=== PATIENT | female | born 1980 | race Hispanic/Latino ===

== ENCOUNTER 2021-12-08 17:58 | Emergency (ER) | payer SELFPAY ==
[2021-12-08 18:07] VITALS: BP 140/88; PULSE 133; RESP 18; TEMP 39.2; O2SAT 100
--- NOTE | 2021-12-08 18:22 | ED.URI ---
HPI - URI/Sore Throat General Chief Complaint: Upper Respiratory Infection Stated Complaint: Ear Pain,Sore Throat Time Seen by Provider: 12/08/21 18:22 Source: patient and RN notes reviewed Mode of arrival: ambulatory Limitations: no limitations History of Present Illness HPI Narrative: 41-year-old female presented for complaint of fever, sore throat, and post nasal drainage for about 2 days, and right ear pain onset 5 days ago. Denies associated cough, shortness of breath, nausea, vomiting or diarrhea. Taking aspirin for symptoms. Endorses son is also sick. She is not vaccinated for COVID or flu. MD elicited complaint: cough Related Data Home Medications Medication Instructions Recorded Confirmed No Home Medications 12/08/21 12/08/21 Allergies Allergy/AdvReac Type Severity Reaction Status Date / Time No Known Allergies Allergy Verified 12/08/21 18:04 Review of Systems Review of Systems: CONSTITUTIONAL: denies malaise, EYES: Denies visual changes, redness, or discharge ENT: Reports rhinorrhea otalgia, sore throat CARDIOVASCULAR: Denies chest pain, palpitations, edema RESPIRATORY: Denies dyspnea GASTROINTESTINAL: Denies abdominal pain, nausea, vomiting, diarrhea SKIN: Denies rash or itching MUSCULOSKELETAL: Denies myalgia NEUROLOGIC: Denies headache Exam Narrative: GENERAL: ill-appearing nontoxic HEAD: Normocephalic EYES: conjunctivae clear ENT: Mucous membranes moist. TM pearly garcia with normal light reflex bilaterally; no tragal tenderness. Oropharynx erythematous without lesions or exudate, no drooling, no hoarseness, no trismus, uvula midline. No tripod positioning, muffled voice, soft palate or pharyngeal wall bulging NECK: Supple. No lymphadenopathy CHEST: Clear to auscultation, breath sounds equal. No respiratory distress, speaks in full sentences. HEART: Regular rate and rhythm. No murmur heard. SKIN: Warm, dry, no rash. NEURO: Alert and oriented x3. PSYCH: Normal mood and affect Course Course Emergency Course: Patient is aware of diagnosis, understands and agrees to treatment plan. Anticipatory guidance given. Patient agrees to follow-up as directed and is aware of reasons to seek care at the emergency department. Portions of this record may have been created with voice recognition software Level of Care: Express Care Visit Vital Signs Vital signs: Vital Signs Temperature 102.6 F H 12/08/21 18:07 Pulse Rate 133 H 12/08/21 18:07 Respiratory Rate 18 12/08/21 18:07 Blood Pressure 140/88 12/08/21 18:07 Pulse Oximetry 100 12/08/21 18:07 Oxygen Delivery Room Air 12/08/21 18:07 Temperature 102.6 F H 12/08/21 18:07 Pulse Rate 133 H 12/08/21 18:07 Respiratory Rate 18 12/08/21 18:07 Blood Pressure 140/88 12/08/21 18:07 Pulse Oximetry 100 12/08/21 18:07 Oxygen Delivery Room Air 12/08/21 18:07 reviewed MDM - URI/Sore Throat MDM Narrative Medical decision making narrative: flu, covid, strep negative. Advised on supportive treatment. She is stable and appropriate for outpatient treatment follow-up. Differential Diagnosis Differential diagnosis: Likely upper respiratory infection, sinusitis and viral infection Discharge Plan Discharge Clinical Impression: Viral infection Patient Disposition: Home, Self-Care Condition: Stable Instructions: Antibiotic Form, Pharyngitis (ED) Additional Instructions: Flu and COVID-negative, rapid strep swab was negative today You will be notified in a few days if the culture comes back positive for strep, and appropriate antibiotics will be called in at that time. if symptoms are due to a viral illness, it is not treated with antibiotics. Viral symptoms can be present for up to 10-14 days. Recommend Zyrtec for sinus congestion/drainage Tylenol 1000mg every 8 hours as needed for pain/fever alternate with ibuprofen 800 mg every 8 hours Soft foods, cool liquids, warm tea. Gargle with warm saltwater twice a
[2021-12-08 18:30] VITALS: TEMP 38.8
[2021-12-08] MEDS: ACETAMINOPHEN 500 MG TABLET 1000 MG PO (18:30)
== END 2021-12-08 18:47 | disposition home or self-care (01) ==
PROVIDERS: Emergency Provider Nurse Practitioner Family
DX: B34.9 Viral infection, unspecified (principal); Z20.822 Contact with and (suspected) exposure to COVID-19
CPT/HCPCS: 87081; 87426; 87804; 87880; 99213; A9270; C9803; G0463

== ENCOUNTER 2022-03-11 16:00 | Outpatient (CLI) | payer SELFPAY ==
--- NOTE | ~2022-03-11 | XR_ITS ---
EXAMINATION: XR chest 2V DATE: 03/11/2022 16:32 INDICATION: Cough TECHNIQUE: PA and lateral views of the chest were obtained. COMPARISON: Chest radiograph dated 03/21/2018 FINDINGS: The lungs remain clear with no focal airspace opacities, pulmonary edema, pleural effusion or pneumot horax. The cardiomediastinal silhouette is normal. Old anterior right ninth rib fracture. IMPRESSION: 1. No acute cardiopulmonary disease. Reviewed, dictated and finalized at location A.
== END 2022-03-11 16:01 | disposition home or self-care (01) ==
PROVIDERS: PCP Emergency Medicine; Visit Provider Emergency Medicine
DX: R05.9 Cough, unspecified (principal)
CPT/HCPCS: 71046

== ENCOUNTER 2024-02-24 08:44 | Outpatient (CLI) | payer OTHER, SELFPAY ==
--- NOTE | ~2024-02-24 | XR_ITS ---
Clinical Indication: Cough PA and lateral views of the chest: Comparison: 03/11/2022 Findings: The lungs are clear, without evidence of focal consolidation or pleural effusion. Cardiome diastinal silhouette is within normal limits. Bones and soft tissues are unremarkable. Impression: Normal chest. Reviewed, dictated and finalized at location . Impression: Normal chest.
[2024-02-24 09:46] LABS: Add Urine Microscopic? YES; Appearance Urine Clear (Clear); Bacteria Urine None Seen /hpf; Bilirubin Urine Negative (Negative); Blood Urine 2+ (Negative); Color Urine Yellow (Yellow); Glucose Urine UA Negative (Negative); Ketones Urine Negative (Negative); Leukocyte Esterase Ur Negative LEU/UL (Negative); Nitrate Urine Negative (Negative); Non Pathogenic Casts 0-2; Protein Urine Negative (Negative); Specific Grav Ur 1.005 (1.001-1.035); Squamous Epithelial Cell Urine None Seen /hpf (Few); Urobilinogen Urine 0.2 mg/dL (<2.0); WBC Urine 0-5 /hpf (0-3); pH Urine 5.5 (5.0-9.0)
[2024-02-24 09:50] LABS: Hemoglobin 15.5 g/dL (12.0-15.0); Mean Corpuscular Hemoglobin 30.5 pg (26-34); Mean Corpuscular Volume 92.5 fl (80-100); Mean Platelet Volume 10.3 fl (7.4-10.4); Platelet Count Result 225 k/mm3 (150-375); Red Blood Count 5.08 M/mm3 (4.2-5.4); Red Cell Distribution Width 12.4 % (11.5-14.5)
[2024-02-24 13:54] LABS: Free T4 Free Thyroxine 1.23 ng/mL (0.78-2.19)
[2024-02-24 14:03] LABS: Alanine Aminotransferase 15 U/L (6-35); Albumin Level 4.6 g/dL (3.5-5.1); Alkaline Phosphatase 61 U/L (38-126); Anion Gap 14 mmol/L (4-12); Aspartate Amino Transferase 30 U/L (14-36); Bilirubin,Total 0.7 mg/dL (0.2-1.3); Blood Urea Nitrogen 15 mg/dL (7-17); Calcium 9.4 mg/dL (8.4-10.2); Carbon Dioxide 21 mmol/L (22-30); Chloride 103 mmol/L (98-107); Cholesterol 177 mg/dL (0-200); Estimated Glomerular Filt Rate > 60; Glucose 96 mg/dL (65-110); HDL Direct 55 mg/dL; Potassium 4.1 mmol/L (3.4-5.0); Sodium 138 mmol/L (137-145); Triglycerides 89 mg/dL (<150)
[2024-02-24 14:14] LABS: LDL Cholesterol Direct 96 mg/dL
[2024-02-24 20:20] LABS: Hemoglobin A1C 5.7 % (<5.7)
== END 2024-02-24 08:45 | disposition home or self-care (01) ==
PROVIDERS: PCP Emergency Medicine; Visit Provider Emergency Medicine
DX: Z00.00 Encounter for general adult medical examination without abnormal findings (principal); J32.9 Chronic sinusitis, unspecified; R05.9 Cough, unspecified
CPT/HCPCS: 36415; 71046; 80053; 80061; 81001; 82306; 83036; 84439; 84443; 85027

== ENCOUNTER 2024-03-05 13:07 | Emergency (ER) | payer OTHER, SELFPAY ==
--- NOTE | ~2024-03-05 | CT_ITS ---
CT facial bones w con Ordering provider: Geraldo Brothers MD History: . Facial pain sinus pain . Comparison: None. Technique: Thin slice axial CT of the facial bones was performed without contrast. Coronal and sagit herrera reformatted images were also obtained. . Automated exposure control and iterative reconstruction technique were employed. The dose-length product was 310.82 mGy-cm. FINDINGS: PARANASAL SINUSES: Well aerated. BONES: No facial fracture including no nasal bone fracture. Mild left nasal septal deviation. ORBITS AND SUPERFICIAL SOFT TISSUES: The optic globes and orbits are normal. The superficial soft tis sues are normal. VISUALIZED MASTOIDS: Well aerated. LIMITED VISUALIZED BRAIN PARENCHYMA: Normal. IMPRESSION: No abnormality seen in the paranasal sinuses. Mild left nasal septal deviation. Reviewed, dictated and finalized at location A.
[2024-03-05 13:39] VITALS: BP 148/77; PULSE 73; RESP 14; TEMP 36.3; O2SAT 96
[2024-03-05 14:50] VITALS: RESP 20; O2SAT 98
[2024-03-05 16:03] LABS: Basophils Percent Auto 0.3 % (0.2-1.2); Eosinophils Absolute Auto 0.2 K/mm3 (0-0.3); Hematocrit 44.4 % (37.0-47.0); Hemoglobin 14.9 g/dL (12.0-15.0); Immature Granulocyte Absolute 0.01 K/mm3 (0.00-0.031); Immature Granulocyte Percent A 0.1 % (0-0.5); Lymphocytes Absolute Auto 1.35 K/mm3 (0.9-3.2); Lymphocytes Percent Auto 18.3 % (18.3-44.2); Mean Corpuscular HGB Conc 33.6 g/dl (32-36); Mean Corpuscular Hemoglobin 30.7 pg (26-34); Mean Corpuscular Volume 91.5 fl (80-100); Monocytes Absolute Auto 0.3 K/mm3 (0.1-0.6); Monocytes Percent Auto 3.7 % (2.6-8.5); Neutrophils Absolute Auto 5.6 K/mm3 (1.3-6.7); Neutrophils Percent Auto 75.6 % (45.5-73.1); Platelet Count Result 241 k/mm3 (150-375); Red Blood Count 4.85 M/mm3 (4.2-5.4); White Blood Count 7.4 K/mm3 (4.5-10.0)
[2024-03-05 16:10] LABS: Estimated CRCL calculation 75 ml/min; Estimated Glomerular Filt Rate > 60
[2024-03-05 16:16] LABS: Alanine Aminotransferase 14 U/L (6-35); Albumin Level 4.4 g/dL (3.5-5.1); Alkaline Phosphatase 60 U/L (38-126); Anion Gap 10 mmol/L (4-12); Aspartate Amino Transferase 29 U/L (14-36); Bilirubin,Total 0.4 mg/dL (0.2-1.3); Blood Urea Nitrogen 11 mg/dL (7-17); Calcium 9.1 mg/dL (8.4-10.2); Carbon Dioxide 25 mmol/L (22-30); Chloride 103 mmol/L (98-107); Estimated CRCL calculation 75 ml/min; Estimated Glomerular Filt Rate > 60; Glucose 97 mg/dL (65-110); Potassium 3.8 mmol/L (3.4-5.0); Sodium 138 mmol/L (137-145)
[2024-03-05 16:18] LABS: Lactic Acid Reflex 0.9 mmol/L (0.7-2.0)
--- NOTE | 2024-03-05 17:08 | ED.GENADULT ---
HPI - General Adult General Chief complaint: Unspecified Stated complaint: sinus infection wants CT scan Time Seen by Provider: 03/05/24 15:21 History of Present Illness HPI narrative: Patient 43-year-old female who presents emergency department with chief complaint of sinus pressure patient reports he has been seen by her primary care doctor started on amoxicillin flipped Augmentin patient reports still having pressure in her sinuses and reports that now has a stiffness and pain on the right side of her neck patient states that she is our primary care provider today who has referred her to Ear Nose Throat but told to come to the emergency department for a CT scan of her sinuses and she may still have an infection Related Data Allergies Allergy/AdvReac Type Severity Reaction Status Date / Time No Known Allergies Allergy Verified 03/05/24 14:54 Review of Systems Review of Systems: A 10 system review of systems was completed on the patient and is negative except for what is stated in the HPI. Nursing and ancillary documentation was reviewed. Exam Narrative: GENERAL: Well-appearing, well-nourished, and in no acute distress. HEAD: Normocephalic, atraumatic. EYES: PERRLA and EOMI. ENT: Nares clear, no rhinorrhea or epistaxis. Mucous membranes moist. NECK: Supple. CHEST: Clear to auscultation. No respiratory distress. HEART: Regular rate and rhythm. No murmur heard. Normal peripheral pulses. ABDOMEN: Soft, nontender, nondistended, normal active bowel sounds. EXTREMITIES: Normal range of motion. No edema. SKIN: Warm, dry, no rash. NEURO: No focal deficits. Alert and oriented x3. PSYCH: Normal mood and affect. Course Vital Signs Vital signs: Vital Signs Temperature 36.3 C L 03/05/24 13:39 Pulse Rate 73 03/05/24 13:39 Respiratory Rate 14 03/05/24 13:39 Blood Pressure 148/77 H 03/05/24 13:39 Pulse Oximetry 96 03/05/24 13:39 Oxygen Delivery Room Air 03/05/24 13:39 Temperature 36.3 C L 03/05/24 13:39 Pulse Rate 73 03/05/24 13:39 Respiratory Rate 20 03/05/24 14:50 Blood Pressure 148/77 H 03/05/24 13:39 Pulse Oximetry 98 03/05/24 14:50 Oxygen Delivery Room Air 03/05/24 13:39 Medical Decision Making [facility] Narrative Medical decision making narrative: Differential diagnosis includes sinusitis, mastoiditis, Laboratory studies were obtained on the patient showed a white count of 7.4 electrolytes are within normal limits CT scan showed PARANASAL SINUSES: Well aerated. BONES: No facial fracture including no nasal bone fracture. Mild left nasal septal deviation. ORBITS AND SUPERFICIAL SOFT TISSUES: The optic globes and orbits are normal. The superficial soft tissues are normal. VISUALIZED MASTOIDS: Well aerated. LIMITED VISUALIZED BRAIN PARENCHYMA: Normal. IMPRESSION: No abnormality seen in the paranasal sinuses. Mild left nasal septal deviation. Patient be started on a prednisone pulse and will be discharged to follow-up with her primary care provider and ear nose and throat Vital Signs Vital Signs: Vital Signs Temperature 36.3 C L 03/05/24 13:39 Pulse Rate 73 03/05/24 13:39 Respiratory Rate 14 03/05/24 13:39 Blood Pressure 148/77 H 03/05/24 13:39 Pulse Oximetry 96 03/05/24 13:39 Oxygen Delivery Room Air 03/05/24 13:39 Temperature 36.3 C L 03/05/24 13:39 Pulse Rate 73 03/05/24 13:39 Respiratory Rate 20 03/05/24 14:50 Blood Pressure 148/77 H 03/05/24 13:39 Pulse Oximetry 98 03/05/24 14:50 Oxygen Delivery Room Air 03/05/24 13:39 Lab Data 03/05/24 15:54 03/05/24 16:08 Labs: Lab Results 03/05/24 03/05/24 Range/Units 15:54 16:08 WBC 7.4 (4.5-10.0) K/mm3 RBC 4.85 (4.2-5.4) M/mm3 Hgb 14.9 (12.0-15.0) g/dL Hct 44.4 (37.0-47.0) % MCV 91.5 (80-100) fl MCH 30.7 (26-34) pg MCHC 33.6 (32-36) g/dl RDW 12.0 (11.5-14.5) % Plt Count 241
[2024-03-05 17:39] VITALS: BP 122/74; PULSE 80; RESP 17; O2SAT 100
== END 2024-03-05 17:41 | disposition home or self-care (01) ==
PROVIDERS: Emergency Provider Emergency Medicine; PCP Emergency Medicine
DX: R51.9 Headache, unspecified (principal)
CPT/HCPCS: 36415; 70487; 80053; 83605; 85025; 99284; Q9967

== ENCOUNTER 2024-03-27 07:41 | Outpatient (CLI) | payer OTHER, SELFPAY ==
[2024-03-27 08:20] LABS: Hematocrit 41.5 % (37.0-47.0); Hemoglobin 13.8 g/dL (12.0-15.0); Mean Corpuscular HGB Conc 33.3 g/dl (32-36); Mean Corpuscular Hemoglobin 30.8 pg (26-34); Mean Corpuscular Volume 92.6 fl (80-100); Mean Platelet Volume 10.4 fl (7.4-10.4); Platelet Count Result 200 k/mm3 (150-375); Red Blood Count 4.48 M/mm3 (4.2-5.4); Red Cell Distribution Width 12.4 % (11.5-14.5); White Blood Count 4.3 K/mm3 (4.5-10.0)
== END 2024-03-27 07:42 | disposition home or self-care (01) ==
LOC: ANHLAB 07:46
PROVIDERS: PCP Emergency Medicine; Visit Provider Emergency Medicine
DX: D58.2 Other hemoglobinopathies (principal)
CPT/HCPCS: 36415; 85027

== ENCOUNTER 2025-03-29 07:28 | Outpatient (CLI) | payer OTHER, SELFPAY ==
--- NOTE | ~2025-03-29 | MM_ITS ---
EXAMINATION: screening [facility] BI w zoila INDICATION: Asymptomatic, referred for screening mammogram COMPARISON: Baseline TECHNIQUE: Digital Breast Tomosynthesis CC, MLO views of Both breasts were obtained with computer-aided detection to assist in interpretation of the study. FINDINGS: There are scattered areas of fibroglandular density. There is an asymmetry seen on the cc view in the slightly medial right breast at middle third. Elsewhere, there are no mammographic features of malignancy. IMPRESSION: 1. Right breast Asymmetry. 2. No evidence of malignancy in the Left breast. RECOMMENDATION: Right breast Diagnostic mammogram with true lateral, appropriate spot compression views and an ultrasound if needed. BI-RADS Category 0: Incomplete: Needs additional imaging evaluation. Reviewed, dictated and finalized at location B. IMPRESSION: 1. Right breast Asymmetry. 2. No evidence of malignancy in the Left breast. RECOMMENDATION: Right breast Diagnostic mammogram with true lateral, appropriate spot compressi on views and an ultrasound if needed. BI-RADS Category 0: Incomplete: Needs additional imaging evaluation.
--- OUTSIDE RECORDS SUMMARY | 2025-03-29 07:34 | XMS_ITS | Clinical Summary ---
Author Organization [facility] Care Team Providers Care Regional Extension Service Specialist Name Role Phone Unavailable Primary Care Provider Unavailabl e Social History Tobacco Use Types Packs/Day Years Used Date Smoking Tobacco: Never Assessed Comments Unknown Sex and Gender Information Value Date Recorded Sex Assigned at Not on file Legal Sex Female 2:40 PM CDT Gender Identity Not on file Sexual Orientation Not on file Plan of Treatment Health Maintenance Due Date Last Done Comments Hepatitis C Virus (HCV) Screening 1982 TdaP Immunization 1982 Pap Smear 2003 Human Papillomavirus (HPV) Immunization (1 - 3-dose SCDM series) 2009 Cervical Cancer Screening (CCS) 2012 HPV/Cotest 2012 SARS-COV-2 Immunization ( season) 2024 Influenza Immunization (#1) 2025 Respiratory Syncytial Virus (RSV) Immunization (Adult) (1 - 1-dose 75+ series) 2057 DTaP/Tdap/Td Immunization Discontinued 1996, 03/30/1994, 03/01/1983, Additional history exists Hepatitis B Immunization Completed 997, 11/19/1996, 10/17/1996 Meningococcal Immunization (ACWY) Aged Out No longer eligible based on patient's age to complete this topic Pneumococcal Immunization Combined Aged Out No longer eligible based on patient's age to complete this topic Rotavirus Immunization Aged Out No lo nger eligible based on patient's age to complete this topic
--- OUTSIDE RECORDS SUMMARY | 2025-03-29 07:34 | XMS_ITS | Clinical Summary ---
Author Organization [facility] Address [address] [place] [address] Care Team Providers Care Occupational Therapist Per Diem Name Role Phone Ethel Seth DO Primary Care Provider [phone] Sánchez Avila MD Unavailable [phone] Source Comments [facility],non-owned Affiliates and Associated Physician Practices is amultiple site organization consisting of ambulatory clinics and hospital sitesin [place], [place], [place] and [place]. This disclosure is being madepursuant to the Care Everywhere program and may not contain all information available regarding this patient. Last updated 18.[facility] Allergies No known active allergies Medications * Be aware that medications may not be up to date on this document. Alwaysverify current medications with the patient. ibuprofen (Motrin) 600 MG tablet Take 1 (one) tablet by mouth every 6 hours as needed for Pain 20 tablet 01/05/2023 Active cetirizine (ZyrTEC) 10 MG tablet Take 1 (one) tablet by mouth once daily Active fluticasone propionate (Flonase) 50 MCG/ACT nasal spray Orient 2 (two) sprays into each nostril 2 times daily 48 g 4 03/23/2024 Active azelastine (Astelin) 0.1 % nasal spray Orient 2 (two) sprays into the nose every 24 hours as needed 08/02/2024 Active omeprazole (PriLOSEC) 40 MG capsule Take 1 (one) capsule by mouth every 24 hours 08/02/2024 Active Active Problems Problem Noted Date Diagnosed Date 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 Chest x-ray within normal limits. She has been started on treatment for latent TB infection with isoniazid and rifapentine once weekly. She is following with infectious disease. History of rheumatic fever 09/25/2024 Resolved Problems Problem Noted Date Diagnosed Date Resolved Date Elbow injury, right, initial encounter 01/19/2023 10/09/2024 Immunizations Immunization Administration Dates Next Due DTP 03/30/1994, 3,1982,1982 HEP B VACCINE, PED/ADOL 04/17/1997,11/19/1996, INFLUENZA VACCINE 07/31/2024 MMR 10/19/1996,03/30/1994,09/16/1983 POLIO OPV 10/19/1996, 4,03/01/1983,1982,1982 TDAP (7yrs+) 07/31/2024 Td (Adult), 2 Lf Tetanus Tox oid, Adsorbed, Pf 10/17/1996 Social History Tobacco Use Types Packs/Day Years Used Date Smoking Tobacco: Never Smokeless Tobacco: Never Tobacco Cessation:Counseling Given: Not Answered Alcohol Use Standard Drinks/Week Comments Not Currently 0 (1 standard drink = 0.6 oz pur e alcohol) PHQ-2 Answer Date Recorded Patient Health Questionnaire-2 Score 0 10/09/2024 Comments No Sex and Gender Information Value Date Recorded Sex Assigned at Not on file Legal Sex Female 12:47 PM CDT Gender Identity Not on file Sexual Orientation Not on file Last Filed Vital Signs Vital Sign Reading Time Taken Comments Blood Pressure 125/70 12/04/2024 8:17 AM CDT Pulse 73 12/04/2024 8:17 AM CDT Temperature 36.3 C (97.3 F) 12/04/2024 8:17 AM CDT Respiratory Rate 20 12/04/2024 8:17 AM CDT Oxygen Saturation 100% 12/04/2024 8:17 AM CDT Inhaled Oxygen Concentration - - Weight 54.4 kg (120 lb) 12/04/2024 8:17 AM CDT Height 160 cm (5' 3) 12/04/2024 8:17 AM CDT Body Mass Index 21.26 12/04/2024 8:17 AM CDT Plan of Treatment Health Maintenance Due Date Last Done Comments MAMMOGRAM 1982 HPV VACCINE (1 - 3-dose SCDM series) 2009 COVID-19 VACCINE ( season) 2025 INFLUENZA VACCINE (#1) 2025 07/31/2024 PAP SMEAR 10/17/2027 10/16/2024, 09/15/2024 LIPID TESTING 10/16/2029 10/16/2024 ZOSTER VACCINE (1 of 2) 2032 DTAP/TDAP/TD VACCINES (7 - Td or Tdap) 07/31/2034 07/31/2024, 10/17/1996, 03/30/1994, Additional history exists HEPATITIS B VACCINE Completed 04/17/1997, 11/19/1996, 10/17/1996 DEPRESSION SCREENING Completed 09/11/2024 HEPATITIS C SCREENING Completed 09/11/2024 HIV SCREENING Completed 09/11/2024 HIB VACCINE Aged Out No longer eligi ble based on patient's age to complete this topic MENINGOCOCCAL (Group B) VACCINE SHARED DECISION-MAKING Aged Out No longer eligible based on patient's age to complete this topic MENINGOCOCCAL GROUPS A/C/Y/W VACCINE Aged Out No longer eligible based on patient's age to complete this topic PNEUMOCOCCAL VACCINE Aged Out No long er eligible based on patient's age to complete this topic Procedures Procedure Name Priority Date/Time Associated Diagnosis Comments HEPATITIS C ANTIBODY Routine 09/11/2024 9:14 AM VICE PRESIDENT FOR PHILANTHROPY Encounter for hepatitis C screening test for low risk patient HIV-1 HIV-2 ANTIBODY + HIV P24 AG PANEL Routine 09/11/2024 9:14 AM VICE PRESIDENT FOR PHILANTHROPY Screening for HIV (human immunodeficiency virus) from Last 3 Months or Most Recently Relevant to Health Maintenance Results * HIV-1 HIV-2 ANTIBODY + HIV P24 AG PANEL (New on 12/01) (09/11/2024 9:14 AM VICE PRESIDENT FOR PHILANTHROPY) Pathologist [facility] HIV Antigen/Antibod y 1 & 2 Non-reacti ve Non-react lori 09/11/2024 10:16 AM VICE PRESIDENT FOR PHILANTHROPY [facility] Comment:No Laboratory eviden ce of HIV infection. Blood BLOOD SPECIMEN / Unknown Lab Venipuncture / Unknown 09/11/2024 9:14 AM VICE PRESIDENT FOR PHILANTHROPY 09/11/2024 9:30 AM VICE PRESIDENT FOR PHILANTHROPY Tato Guajardo MD LAB - CHEMISTRY ORDERABLES Vilma l Result Performing Organization Address [facility]/ZIP Co de Phone Number [address] [address], [place] [phone] * HEPATITIS C ANTIBODY (09/11/2024 9:14 AM VICE PRESIDENT FOR PHILANTHROPY) Pathologist [facility] Hepatitis C Antibody Non-react lori Non-reac tive 09/11/2024 10:16 AM VICE PRESIDENT FOR PHILANTHROPY [facility] Comment:Hepatitis C Antibody screen indicates no serologic evidence of past or current infection with Hepatitis C Virus. Patients with unexplained liver disease who are immunocompromised or suspected of having acute Hepatitis C infection may benefit from Nucleic Acid Test (GAVINO) for Hepatitis C Viral RNA to confirm Hepatitis C status. Blood BLOOD SPECIMEN / Unknown Lab Venipuncture / Unknown 09/11/2024 9:14 AM VICE PRESIDENT FOR PHILANTHROPY 09/11/2024 9:30 AM VICE PRESIDENT FOR PHILANTHROPY Tato Guajardo MD LAB - CHEMISTRY ORDERABLES Vilma l Result [address] [address], [place] [phone] from Last 3 Months or Most Recently Relevant to Health Maintenance Insurance [facility] INDIV[employer]UAL [employer]CHANGE BENEFIT PLAN Care Teams Occupational Therapist Per Diem Relationship Specialty Start Date End Date Ethel Seth DO [address] [place] [address] PCP - General 10/09/24 Sánchez Avila MD [address] [address] [place] [phone] Resident Infectious Disease 12/04/24
--- OUTSIDE RECORDS SUMMARY | 2025-03-29 07:34 | XMS_ITS | Clinical Summary ---
Author Organization [facility] Address [address] [place] [id number] Care Team Providers Care Electric Motor Repairer Name Role Phone Unavailable Primary Care Provider Unavailabl e Encounters Date Type Department Care Team Description 02/19/2025 External Device Data [facility]STRACTION Provider, Abstract 01/30/2025 External Device Data [facility] Provider, Abstract 01/30/2025 External Device Data [facility] Provider, Abstract 01/29/2025 External Device Data [facility]CTION Provider, Abstract 01/01/2025 External Device Data [facility]CTION Provider, Abstract from Last 3 Months Social History Tobacco Use Types Packs/Day Years Used Date Smoking Tobacco: Never Assessed Comments Unknown Sex and Gender Information Value Date Recorded Sex Assigned at Not on file Legal Sex Female 2:46 PM TREATMENT TECHNICIAN Gender Identity Not on file Sexual Orientation Not on file Plan of Treatment Health Maintenance Due Date Last Done Comments DTAP/TDAP/TD VACCINES (1 - Tdap) 2001 HEPATITIS B VACCINES (1 of 3 - 19+ 3-dose series) 07/18 HPV/Cotest (21-29) 2003 HPV VACCINES (1 - 3-dose SCDM series) 2009 CERVICAL CANCER SCREENING 2012 HPV/Cotest (30-65) 2012 PAP SMEAR 2012 BREAST CANCER SCREENING 2022 INFLUENZA VACCINE (#1) 2025 Insurance [facility] INDIVIDUAL EXCHANGE [id number]
--- OUTSIDE RECORDS SUMMARY | 2025-03-29 07:35 | XMS_ITS | Patient Health Record ---
Author Organization [facility] Address [address] [place] [address] Care Team Providers Care Executive Advisor Name Role Phone STEVENRENÉEFI Unavailable [phone] Reason For Referral No Information Plan Of Treatment No Information
== END 2025-03-29 07:29 | disposition home or self-care (01) ==
LOC: ANHFOHIMG 07:32
PROVIDERS: PCP Emergency Medicine; Visit Provider Family Medicine
DX: Z12.31 Encounter for screening mammogram for malignant neoplasm of breast (principal)
CPT/HCPCS: 77063; 77067